=== PATIENT | female | born 1940 | race Caucasian/White ===

== ENCOUNTER 2022-06-08 23:40 | Emergency (ER) | payer MEDICARE, BC ==
[~2022-06-08] VITALS: Ht 165.1 cm; Wt 68.0 kg
[2022-06-08] MEDS ORDERED: VENL150C2 PO (23:59)
[2022-06-08] MEDS ORDERED: AMLO2.5T4 PO (23:59)
[2022-06-08] MEDS ORDERED: ATOR20TA PO (23:59)
[2022-06-08] MEDS ORDERED: CHOL400C5 PO (23:59)
[2022-06-08] MEDS ORDERED: ASPI81TA31 PO (23:59)
--- NOTE | 2022-06-09 00:16 | NUR ---
Dr Benito at bedside, MSE in progress
[2022-06-09] MEDS ORDERED: NITROGLYCERIN 0.4 MG/TAB BOTTLE SL ONE ×2 (00:30→00:39)
[2022-06-09] MEDS ORDERED: NITROGLYCERIN OINT 1 GM PACKET TP ONE ×2 (00:30→00:39)
[2022-06-09 00:40] LABS: HEMATOCRIT 41.3 % (31.2-41.9); MEAN CORPUSCULAR HEMOGLOBIN 31.2 uug (24.7-32.8); MEAN CORPUSCULAR VOLUME 89.3 fL (75.5-95.3); PLATELET COUNT (AUTO) 198 K/uL (179-408)
[2022-06-09 00:47] LABS: CARBON DIOXIDE 31 mmol/L (21-32); CHLORIDE 104 mmol/L (98-107); CREATININE 0.8 mg/dL (0.6-1.3); GLUCOSE 109 mg/dL (74-106); POTASSIUM 3.8 mmol/L (3.5-5.1); UREA NITROGEN, BLOOD 18 mg/dL (7-18)
--- NOTE | 2022-06-09 00:53 | NUR ---
Patient is awake, a/ox4, NAD noted
[2022-06-09 01:00] LABS: ALANINE AMINOTRANSFERASE 25 U/L (14-59); ALKALINE PHOSPHATASE 52 U/L (50-136); ASPARTATE AMINOTRANSFERASE 19 U/L (15-37); BILIRUBIN,DIRECT < 0.1 mg/dL (0.0-0.2); BILIRUBIN,TOTAL 0.3 mg/dL (0.2-1.0); TOTAL PROTEIN, SERUM 7.1 g/dL (6.4-8.2)
[2022-06-09] MEDS ORDERED: POTASSIUM CHLORIDE 20 MEQ TAB.PRT.SR PO ONE (03:15)
[2022-06-09] MEDS ORDERED: FUROSEMIDE 20 MG TABLET PO ONE (03:15)
[2022-06-09] MEDS ORDERED: FUROSEMIDE 20 MG TABLET ONE (03:19)
[2022-06-09] MEDS ORDERED: POTASSIUM CHLORIDE 20 MEQ TAB.PRT.SR ONE (03:19)
--- NOTE | 2022-06-09 03:27 | NUR ---
Patient discharged to home in stable condition. Written and verbal after care instructions given. Patient verbalizes understanding of instructions. Stressed follow up or return to ER for worsening s/s. Patient is a/ox4, NAD noted. Patient is able to walk with steady gait
[2022-06-09 03:45] VITALS: BP 110/81
== END 2022-06-09 03:30 | disposition home or self-care (01) ==
LOC: ER 23:52
DX: R06.01 Orthopnea (principal); I45.10 Unspecified right bundle-branch block; R94.31 Abnormal electrocardiogram [ECG] [EKG]; G47.8 Other sleep disorders; E78.5 Hyperlipidemia, unspecified; Z85.828 Personal history of other malignant neoplasm of skin; Z79.82 Long term (current) use of aspirin; F32.A Depression, unspecified; Z79.899 Other long term (current) drug therapy
CPT/HCPCS: 36415; 71045; 84484; 85025; 93005